=== PATIENT | female | born 1950 | race Caucasian/White ===

== ENCOUNTER → 2017-07-26 | Outpatient (CLI) | payer MEDICARE, OTHER ==
[~2017-07-26] MED LIST: ALPR-475 PO; CARV3.1212 PO; CYCL1DRO EACHEYE; LEVO88TA2 PO; LINA5TAB PO; LISI2.5T PO; ONDA4TAB10 PO; OXYC30TA66 PO; PARO20TA98 PO; PRAV40TA2 PO; PROC10TA PO; ZOLP10TA PO
== END | disposition home or self-care (01) ==
LOC: CFH 15:03
PROVIDERS: ATTEND Nurse Practitioner Primary Care
DX: R10.9 Unspecified abdominal pain (principal); R53.83 Other fatigue; E03.9 Hypothyroidism, unspecified; E11.65 Type 2 diabetes mellitus with hyperglycemia; E78.2 Mixed hyperlipidemia; F06.31 Mood disorder due to known physiological condition with depressive features; G89.29 Other chronic pain; I10 Essential (primary) hypertension; R01.1 Cardiac murmur, unspecified; D68.61 Antiphospholipid syndrome; M25.511 Pain in right shoulder; D50.9 Iron deficiency anemia, unspecified; E53.9 Vitamin B deficiency, unspecified; E55.9 Vitamin D deficiency, unspecified
CPT/HCPCS: 74018

== ENCOUNTER → 2017-08-12 | Outpatient (CLI) | payer MEDICARE, OTHER | END | disposition home or self-care (01) | LOC: CFH 10:35 | PROVIDERS: ATTEND Nurse Practitioner Primary Care | DX: K83.8 Other specified diseases of biliary tract (principal); R53.83 Other fatigue; E55.9 Vitamin D deficiency, unspecified; E03.9 Hypothyroidism, unspecified; E11.65 Type 2 diabetes mellitus with hyperglycemia; E78.2 Mixed hyperlipidemia; F06.31 Mood disorder due to known physiological condition with depressive features; G89.29 Other chronic pain; I10 Essential (primary) hypertension; M25.511 Pain in right shoulder; D50.9 Iron deficiency anemia, unspecified; E53.9 Vitamin B deficiency, unspecified | CPT/HCPCS: 76700 ==

== ENCOUNTER 2017-11-08 05:41 | Day surgery (SDC) | payer MEDICARE, OTHER ==
[2017-11-07 12:26] VITALS: BP 97/67
[2017-11-07 13:14] LABS: ALANINE AMINOTRANSFERASE 18 U/L (12-78); ALBUMIN 3.4 g/dL (3.4-5.0); ANION GAP 6 mmol/L (5-15); CALCIUM 9.2 mg/dL (8.5-10.1); CHLORIDE 105 mmol/L (98-107); CREATININE 1.33 mg/dL (0.55-1.02)
[2017-11-07 13:17] LABS: ALKALINE PHOSPHATASE 86 U/L (45-117); BILIRUBIN,TOTAL 0.5 mg/dL (0.2-1.0)
[~2017-11-08] VITALS: Ht 170.2 cm; Wt 78.9 kg
[~2017-11-08 05:41] MED LIST changes: +CHOL5000 PO; +CYAN50008 IM; +OXYC30TA PO; +OXYC5TAB3 PO; +RIVA10TA PO
[2017-11-08] MEDS ORDERED: LACTATED RINGERS 1,000 ML IV SCH (06:33)
[2017-11-08 06:35] VITALS: BP 97/67
[2017-11-08] MEDS ORDERED: LIDOCAINE-MPF 1%, 2ML INFIL ONE (07:00)
[2017-11-08] MEDS ORDERED: FENTANYL PF 100 MCG/2ML ONE ×2 (07:25→08:47)
[2017-11-08] MEDS ORDERED: MIDAZOLAM 1 MG/ML, 2ML ONE (07:26)
[2017-11-08] MEDS ORDERED: SUCCINYLCHOLINE 20 MG/ML, 10ML ONE (07:56)
[2017-11-08] MEDS ORDERED: DEXAMETHASONE 4 MG/ML, 1ML ONE (07:56)
[2017-11-08] MEDS ORDERED: ONDANSETRON 2MG/ML, 2ML ONE (07:56)
[2017-11-08] MEDS ORDERED: PROPOFOL 10 MG/ML, 20ML ONE (07:56)
[2017-11-08] MEDS ORDERED: MEPERIDINE/PF 25MG/0.5ML IVPush PRN (08:00)
[2017-11-08] MEDS ORDERED: ACETAMINOPHEN 325 MG TABLET PO PRN (08:00)
[2017-11-08] MEDS ORDERED: HYDROcodone/APAP 7.5-325MG/15ML UDC PO PRN (08:00)
[2017-11-08] MEDS ORDERED: PROMETHAZINE 25 MG/ML, 1ML IV PRN (08:00)
[2017-11-08] MEDS ORDERED: ONDANSETRON ODT 8 MG PO PRN (08:00)
[2017-11-08] MEDS ORDERED: MORPHINE SULFATE 4 MG/ML, 1ML IVPush PRN (08:00)
[2017-11-08] MEDS ORDERED: OXYcodone 5 MG/5 ML ORAL.SOL UDC PO PRN (08:00)
[2017-11-08] MEDS ORDERED: FENTANYL PF 100 MCG/2ML IV PRN (08:00)
[2017-11-08] MEDS ORDERED: OMNIPAQUE 350 MG/ML, 50 ML BOTTLE ONE (08:31)
[2017-11-08] MEDS: LORazepam 2 MG/ML, 1ML IVPush PRN ×2 (08:42→09:01)
[2017-11-08] MEDS ORDERED: PROMETHAZINE 25 MG/ML, 1ML ONE (08:47)
[2017-11-08] MEDS ORDERED: LORazepam 2 MG/ML, 1ML ONE (08:54)
== END 2017-11-08 10:55 ==
LOC: OUT 05:41
PROVIDERS: ATTEND Internal Medicine
DX: K83.1 Obstruction of bile duct (principal); E11.9 Type 2 diabetes mellitus without complications; Z88.1 Allergy status to other antibiotic agents
CPT/HCPCS: 36415; 43262; 43274; 43277; 74328; 80053; 82962; 93005; C1769; J0330; J1100; J2060; J2250; J2405; J2550; J2704; J3010; J3490; J7120; Q9967

== ENCOUNTER → 2018-09-19 | Outpatient (CLI) | payer MEDICARE, OTHER ==
[~2018-09-19] MED LIST changes: -PROC10TA PO; +PROC10TA2 PO; -RIVA10TA PO; +RIVA10TA2 PO
== END | disposition home or self-care (01) ==
LOC: CFH 12:58
PROVIDERS: ATTEND Nurse Practitioner Primary Care
DX: I35.1 Nonrheumatic aortic (valve) insufficiency (principal); I70.0 Atherosclerosis of aorta; E78.5 Hyperlipidemia, unspecified; E55.9 Vitamin D deficiency, unspecified; E03.9 Hypothyroidism, unspecified; E11.65 Type 2 diabetes mellitus with hyperglycemia; E53.9 Vitamin B deficiency, unspecified; E78.2 Mixed hyperlipidemia; D50.9 Iron deficiency anemia, unspecified; D64.9 Anemia, unspecified; D51.0 Vitamin B12 deficiency anemia due to intrinsic factor deficiency; G89.29 Other chronic pain; Z79.899 Other long term (current) drug therapy
CPT/HCPCS: 93306

== ENCOUNTER 2018-12-27 14:30 | Outpatient (CLI) | payer MEDICARE, OTHER | END 2018-12-27 23:59 | disposition home or self-care (01) | LOC: CFH 14:30 | PROVIDERS: ATTEND Internal Medicine | DX: R91.8 Other nonspecific abnormal finding of lung field (principal) | CPT/HCPCS: 71250 ==

== ENCOUNTER → 2019-10-19 | Outpatient (CLI) | payer MEDICARE, OTHER ==
[~2019-10-19] MED LIST changes: -ALPR-475 PO; +ALPR0.5T7 PO
== END | disposition home or self-care (01) ==
LOC: CFH 15:23
PROVIDERS: ATTEND Internal Medicine
DX: R91.8 Other nonspecific abnormal finding of lung field (principal)
CPT/HCPCS: 71250

== ENCOUNTER → 2020-04-18 | Outpatient (CLI) | payer MEDICARE, OTHER ==
[~2020-04-18] MED LIST changes: -OXYC30TA PO; +OXYC30TA3 PO
== END | disposition home or self-care (01) ==
LOC: CFH 14:31
PROVIDERS: ATTEND Internal Medicine
DX: R91.8 Other nonspecific abnormal finding of lung field (principal); Z96.611 Presence of right artificial shoulder joint
CPT/HCPCS: 71250